=== PATIENT | male | born 1945 | race Hispanic/Latino ===

== ENCOUNTER 2024-03-18 12:28 | Emergency (ER) | payer OTHER ==
[~2024-03-18] VITALS: Ht 167.6 cm; Wt 81.6 kg
[~2024-03-18 12:28] MED LIST: AMLO-258 PO; ASPI-1005 PO; ATOR10 PO; BUPR-112 PO; FERR325T22 PO; FOLI0.8T43 PO; FURO40TA7 PO; HYDR25 PO; LABE100T7 PO; MECL-226 PO; SODI650T PO
[2024-03-18 15:32] VITALS: BP 121/68; PULSE 76; RESP 18; O2SAT 99
== END 2024-03-18 15:44 | disposition home or self-care (01) ==
LOC: EDH 12:28
DX: R53.1 Weakness (principal); M79.605 Pain in left leg; R51.9 Headache, unspecified; I10 Essential (primary) hypertension; Z79.82 Long term (current) use of aspirin; Z79.899 Other long term (current) drug therapy; Z98.890 Other specified postprocedural states
CPT/HCPCS: 70450